=== PATIENT | male | born 1990 | race Caucasian/White ===

== ENCOUNTER 2018-05-03 15:47 | Emergency (ER) | payer BC ==
[~2018-05-03] VITALS: Ht 185.4 cm; Wt 79.7 kg
[~2018-05-03 15:47] MED LIST: FLEXERIL10 MG PO; MOTRIN600 MG PO; MOTRIN800 MG PO; NAPROSYN500 MG PO; NOHOMEMEDS; NORCO 5/3251 TABLET PO; PEN-VEE K,VEET500 MG PO; TRAMADOL HCL50 MG PO; ULTRAM50 MG PO; VALIUM5 MG PO
[2018-05-03] MEDS ORDERED: TRAMADOL HCL50 MG PO (16:51)
[2018-05-03] MEDS ORDERED: AMOXICILLIN875 MG PO (16:51)
[2018-05-03] MEDS ORDERED: MOTRIN800 MG PO (16:51)
[2018-05-03 16:59] VITALS: BP 115/66
== END 2018-05-03 17:03 | disposition home or self-care (01) ==
LOC: EME 15:47
DX: K08.89 Other specified disorders of teeth and supporting structures (principal); K02.9 Dental caries, unspecified; R51 Headache; H61.22 Impacted cerumen, left ear
CPT/HCPCS: 99281; 99284